=== PATIENT | female | born 1935 | race Caucasian/White ===

== ENCOUNTER 2017-07-21 15:01 | Emergency (ER) | payer OTHER, BC ==
[~2017-07-21] VITALS: Ht 406.4 cm; Wt 83.2 kg
[~2017-07-21 15:01] MED LIST: DICLOFENAC SODI75 MG PO; FLEXERIL10 MG PO; LEVAQUIN750 MG PO; RYBIX ODT50 MG PO; VOLTAREN75 MG PO
[2017-07-21 16:54] LABS: HEMATOCRIT 47.4 % (36.0-46.0); HEMOGLOBIN 15.8 G/DL (11.9-15.5); MCH 31.9 PG (29.0-34.0); MCHC 33.3 G/DL (30.0-36.0); MCV 95.8 FL (83-99); PLATELET COUNT 124 K/uL (156-360); RBC DIS.WIDTH-CV 13.7 % (11.8-14.6); RBC DIS.WIDTH-SD 48.3 % (39-53); RED BLOOD COUNT 4.95 M/uL (3.80-5.20)
[2017-07-21 17:03] LABS: ALBUMIN 4.1 g/dL (3.2-4.8); CHLORIDE 108 mEq/L (99-109); POTASSIUM 4.3 mEq/L (3.7-5.4); SODIUM 140 mEq/L (136-147)
[2017-07-21 17:05] LABS: GLUCOSE 119 mg/dL (70-99)
[2017-07-21 17:06] LABS: TOTAL PROTEIN 6.9 g/dL (6.4-8.3)
[2017-07-21 17:07] LABS: TOTAL BILIRUBIN 1.2 mg/dL (0.0-1.0)
[2017-07-21 17:09] LABS: ALKALINE PHOSPHATASE 61 IU/L (3-129); CREATININE 0.8 mg/dL (0.6-1.3); GFR ESTIMATE (CALCULATED) > 59 mL/min/
[2017-07-21 17:10] LABS: UREA NITROGEN (BUN) 24 mg/dL (9-23)
[2017-07-21 17:11] LABS: AST (GOT) 17 IU/L (2-34)
[2017-07-21 17:12] LABS: ALT (GPT) 14 IU/L (3-49)
[2017-07-21 17:51] LABS: APPEARANCE CLEAR ((CLEAR)); BILIRUBIN NEGATIVE; BLOOD NEGATIVE; COLOR YELLOW ((YELLOW)); GLUCOSE (STRIP) NEGATIVE; KETONES 5; LEUKOCYTES NEGATIVE; NITRITE NEGATIVE; PROTEIN (STRIP) 30; SPECIFIC GRAVITY 1.017 (1.000-1.030); UCUL ADDED? NO; UROBILINOGEN 0.2 MG/DL (0.2-1.0)
[2017-07-21 18:20] VITALS: BP 147/88
== END 2017-07-21 18:20 | disposition home or self-care (01) ==
LOC: EME 15:01
PROVIDERS: Emergency Medicine
DX: R42 Dizziness and giddiness (principal); I48.91 Unspecified atrial fibrillation; Z79.01 Long term (current) use of anticoagulants; F17.200 Nicotine dependence, unspecified, uncomplicated; Z85.820 Personal history of malignant melanoma of skin; Z90.710 Acquired absence of both cervix and uterus
CPT/HCPCS: 70450; 80053; 81003; 82948; 85027; 93005; 99281; 99285; J7030